=== PATIENT | female | born 1935 | race Caucasian/White ===

== ENCOUNTER 2018-12-16 10:43 | Inpatient (IN) | payer MEDICARE, MEDICAID ==
[~2018-12-16] VITALS: Ht 167.6 cm; Wt 78.5 kg
[2018-12-16 12:01] LABS: HEMOGLOBIN. 11.9 g/dL (12.0-16.0); MEAN CORPUSCULAR HEMOGLOBIN 30.2 pg (28.0-32.0); MEAN CORPUSCULAR VOLUME 89.3 fL (81.0-99.0); MEAN PLATELET VOLUME 7.6 fl (7.4-10.4); PLATELET 237 x1000/uL (130-400); RED BLOOD CELL COUNT 3.92 mill/uL (4.2-5.4); RED CELL DISTRIBUTION WIDTH 15.5 % (11.6-14.6)
[2018-12-16 12:09] LABS: INR 1.1; PROTHROMBIN TIME 10.9 sec (9.6-11.0)
[2018-12-16 12:13] LABS: CHLORIDE 99 mEq/L (98-107)
[2018-12-16 12:49] LABS: PLATELET ESTIMATE NORMAL
[2018-12-16] MEDS ORDERED: ACETAMINOPHEN 650MG/20.3ML UDC GT PRN (15:30)
[2018-12-16] MEDS ORDERED: ONDANSETRON HCL 4MG/2ML INJ IV PRN (15:30)
[2018-12-16] MEDS ORDERED: LORAZEPAM 0.5MG TABLET PO PRN (15:30)
[2018-12-16 18:20] VITALS: BP 142/49
[2018-12-16 19:30] VITALS: BP 142/49
[2018-12-16] MEDS: ENOXAPARIN 30MG/0.3ML SYR SUBCUT SCH (19:44)
[2018-12-16] MEDS: IPRATROPIUM/ALBUTEROL 0.5-3(2.5)MG/3ML NEB HHN SCH (20:06)
[2018-12-16] MEDS ORDERED: POTASSIUM CHLORIDE 20MEQ/PACKET PO NR (20:30)
[2018-12-16 21:00] VITALS: BP 121/60
[2018-12-16] MEDS: GUAIFENESIN/CODEINE 200-20MG/10ML UDC PO PRN (22:14)
[2018-12-16] MEDS: DILTIAZEM HCL 30MG TABLET PO SCH (22:15)
[2018-12-16] MEDS: SODIUM CHL 0.45% + KCL 20MEQ/L 1,000 ML IV SCH (22:17)
[2018-12-17] VITALS: BP 98/64
[2018-12-17] MEDS ORDERED: SODIUM CHL 0.45% + KCL 20MEQ/L 1,000 ML IV SCH
[2018-12-17] MEDS ORDERED: APIX2.5T PO (00:07)
[2018-12-17] MEDS ORDERED: LOSA100T32 PO (00:07)
[2018-12-17] MEDS ORDERED: CHOL100022 PO (00:07)
[2018-12-17] MEDS ORDERED: FENO160T9 PO (00:07)
[2018-12-17] MEDS ORDERED: CYAN-33 PO (00:07)
[2018-12-17] MEDS ORDERED: LEVO50TA8 PO (00:07)
[2018-12-17] MEDS ORDERED: ASCO500C15 PO (00:07)
[2018-12-17] MEDS ORDERED: AMIO100T4 PO (00:07)
[2018-12-17] MEDS ORDERED: EZET10TA13 PO (00:07)
[2018-12-17] MEDS ORDERED: METO5TAB69 PO (00:07)
[2018-12-17] MEDS: IPRATROPIUM/ALBUTEROL 0.5-3(2.5)MG/3ML NEB HHN SCH ×6 (00:43→21:19)
[2018-12-17 04:00] VITALS: BP 122/50
[2018-12-17] MEDS: DILTIAZEM HCL 30MG TABLET PO SCH (06:33)
[2018-12-17 06:34] LABS: HEMATOCRIT. 32.8 % (36.0-48.0); HEMOGLOBIN. 11.1 g/dL (12.0-16.0); MEAN CORPUSCULAR HEMOGLOBIN 30.1 pg (28.0-32.0); MEAN CORPUSCULAR VOLUME 89.2 fL (81.0-99.0); MEAN PLATELET VOLUME 8.1 fl (7.4-10.4); PLATELET 233 x1000/uL (130-400); RED BLOOD CELL COUNT 3.68 mill/uL (4.2-5.4); RED CELL DISTRIBUTION WIDTH 15.8 % (11.6-14.6)
[2018-12-17 07:01] LABS: PHOSPHORUS 4.6 mg/dL (2.5-4.9)
[2018-12-17 08:00] VITALS: BP 154/66
[2018-12-17] MEDS: LEVOTHYROXINE SODIUM 50MCG TABLET PO SCH (08:21)
[2018-12-17] MEDS: AMIODARONE HCL 200 MG TABLET PO SCH (08:22)
[2018-12-17] MEDS: ASPIRIN 81MG TABLET PO SCH (08:22)
[2018-12-17] MEDS: EZETIMIBE 10MG TABLET PO SCH (08:22)
[2018-12-17] MEDS: FENOFIBRATE NANOCRYSTALLIZED 145MG TABLET PO SCH (08:24)
[2018-12-17] MEDS: SODIUM CHL 0.45% + KCL 20MEQ/L 1,000 ML IV SCH ×2 (09:31→22:40)
[2018-12-17] MEDS: GUAIFENESIN/CODEINE 200-20MG/10ML UDC PO PRN (10:52)
[2018-12-17] MEDS: POLYETHYLENE GLYCOL 3350 (17GM) 1 DOSE PACK PO SCH (10:52)
[2018-12-17 12:00] VITALS: BP 117/66
[2018-12-17 12:36] LABS: TOTAL IRON BINDING CAPACITY 385 ug/dL (250-450)
[2018-12-17 16:00] VITALS: BP 120/74
[2018-12-17] MEDS: ENOXAPARIN 30MG/0.3ML SYR SUBCUT SCH (16:28)
[2018-12-17 20:00] VITALS: BP 101/54
[2018-12-18] VITALS: BP 104/74
[2018-12-18] MEDS ORDERED: SODIUM CHL 0.45% + KCL 20MEQ/L 1,000 ML IV SCH
[2018-12-18] MEDS: IPRATROPIUM/ALBUTEROL 0.5-3(2.5)MG/3ML NEB HHN SCH ×7 (01:32→21:23)
[2018-12-18 04:00] VITALS: BP 106/52
[2018-12-18 07:33] LABS: HEMATOCRIT. 30.9 % (36.0-48.0); HEMOGLOBIN. 10.2 g/dL (12.0-16.0); MEAN CORPUSCULAR HEMOGLOBIN 29.6 pg (28.0-32.0); MEAN CORPUSCULAR VOLUME 89.4 fL (81.0-99.0); MEAN PLATELET VOLUME 7.6 fl (7.4-10.4); PLATELET 213 x1000/uL (130-400); RED BLOOD CELL COUNT 3.46 mill/uL (4.2-5.4); RED CELL DISTRIBUTION WIDTH 16.1 % (11.6-14.6)
[2018-12-18 07:52] VITALS: BP 105/63
[2018-12-18] MEDS ORDERED: AMLODIPINE 2.5MG TABLET PO SCH (09:00)
[2018-12-18] MEDS: FENOFIBRATE NANOCRYSTALLIZED 145MG TABLET PO SCH (09:43)
[2018-12-18] MEDS: EZETIMIBE 10MG TABLET PO SCH (09:43)
[2018-12-18] MEDS: POLYETHYLENE GLYCOL 3350 (17GM) 1 DOSE PACK PO SCH (09:43)
[2018-12-18] MEDS: AMIODARONE HCL 200 MG TABLET PO SCH (09:43)
[2018-12-18] MEDS: LEVOTHYROXINE SODIUM 50MCG TABLET PO SCH (09:43)
[2018-12-18] MEDS: ASPIRIN 81MG TABLET PO SCH (09:43)
[2018-12-18] MEDS ORDERED: MORPHINE SULFATE 2 MG/ML CPJ (NOT FOR IM USE) IV PRN (09:45)
[2018-12-18 10:43] LABS: PLATELET ESTIMATE NORMAL
[2018-12-18 12:33] VITALS: BP 131/105
[2018-12-18] MEDS ORDERED: IRON SUCROSE COMPLEX 100 MG/5 ML ML IV SCH (13:30)
[2018-12-18] MEDS: SODIUM CHLORIDE 0.45% 1,000 ML IV SCH (13:52)
[2018-12-18] MEDS ORDERED: NITROGLYCERIN OINT 1GM/INCH UDPKT TD SCH (14:00)
[2018-12-18] MEDS: GUAIFENESIN/CODEINE 200-20MG/10ML UDC PO PRN (15:56)
[2018-12-18 16:18] VITALS: BP 128/68
[2018-12-18] MEDS: ENOXAPARIN 30MG/0.3ML SYR SUBCUT SCH (17:48)
[2018-12-18 20:00] VITALS: BP 105/37
[2018-12-18] MEDS: CARVEDILOL 3.125 MG TABLET PO SCH (21:00)
[2018-12-19] VITALS: BP 132/86
[2018-12-19] MEDS: IPRATROPIUM/ALBUTEROL 0.5-3(2.5)MG/3ML NEB HHN SCH ×6 (00:47→20:51)
[2018-12-19] MEDS: SODIUM CHLORIDE 0.45% 1,000 ML IV SCH ×2 (02:47→15:32)
[2018-12-19 04:00] VITALS: BP_SYST 137; BP_DIAS 62; BP_DIAS 92
[2018-12-19 08:17] VITALS: BP 103/78
[2018-12-19] MEDS: FENOFIBRATE NANOCRYSTALLIZED 145MG TABLET PO SCH (09:13)
[2018-12-19] MEDS: LEVOTHYROXINE SODIUM 50MCG TABLET PO SCH (09:13)
[2018-12-19] MEDS: EZETIMIBE 10MG TABLET PO SCH (09:13)
[2018-12-19] MEDS: ASPIRIN 81MG TABLET PO SCH (09:13)
[2018-12-19] MEDS: AMIODARONE HCL 200 MG TABLET PO SCH (09:13)
[2018-12-19] MEDS: POLYETHYLENE GLYCOL 3350 (17GM) 1 DOSE PACK PO SCH (09:13)
[2018-12-19] MEDS: CARVEDILOL 3.125 MG TABLET PO SCH ×2 (09:14→21:00)
[2018-12-19] MEDS ORDERED: POLYETHYLENE GLYCOL 3350 (17GM) 1 DOSE PACK PO SCH (09:15)
[2018-12-19] MEDS: GUAIFENESIN/CODEINE 200-20MG/10ML UDC PO PRN (09:27)
[2018-12-19 10:01] LABS: PLATELET ESTIMATE NORMAL
[2018-12-19 12:09] VITALS: BP 139/34
[2018-12-19 16:26] VITALS: BP 105/48
[2018-12-19] MEDS: ENOXAPARIN 30MG/0.3ML SYR SUBCUT SCH (18:57)
[2018-12-19 20:00] VITALS: BP_SYST 105; BP_SYST 107; BP_DIAS 52; BP_DIAS 56
[2018-12-20] VITALS: BP 107/56
[2018-12-20] MEDS: IPRATROPIUM/ALBUTEROL 0.5-3(2.5)MG/3ML NEB HHN SCH ×6 (00:47→20:54)
[2018-12-20 04:00] VITALS: BP 114/51
[2018-12-20] MEDS: SODIUM CHLORIDE 0.45% 1,000 ML IV SCH ×2 (05:01→21:23)
[2018-12-20 07:37] LABS: HEMATOCRIT. 30.5 % (36.0-48.0); HEMOGLOBIN. 10.1 g/dL (12.0-16.0); MEAN CORPUSCULAR HEMOGLOBIN 29.8 pg (28.0-32.0); MEAN CORPUSCULAR VOLUME 90.5 fL (81.0-99.0); PLATELET 199 x1000/uL (130-400); RED BLOOD CELL COUNT 3.37 mill/uL (4.2-5.4); RED CELL DISTRIBUTION WIDTH 16.3 % (11.6-14.6)
[2018-12-20 08:00] VITALS: BP 126/70
[2018-12-20] MEDS: ASPIRIN 81MG TABLET PO SCH (09:37)
[2018-12-20] MEDS: EZETIMIBE 10MG TABLET PO SCH (09:37)
[2018-12-20] MEDS: FENOFIBRATE NANOCRYSTALLIZED 145MG TABLET PO SCH (09:37)
[2018-12-20] MEDS: AMIODARONE HCL 200 MG TABLET PO SCH (09:37)
[2018-12-20] MEDS: LEVOTHYROXINE SODIUM 50MCG TABLET PO SCH (09:38)
[2018-12-20] MEDS: CARVEDILOL 3.125 MG TABLET PO SCH ×2 (09:38→21:23)
[2018-12-20] MEDS: POLYETHYLENE GLYCOL 3350 (17GM) 1 DOSE PACK PO SCH (09:39)
[2018-12-20] MEDS ORDERED: POLYETHYLENE GLYCOL 3350 (17GM) 1 DOSE PACK PO SCH (10:30)
[2018-12-20 12:00] VITALS: BP 112/42
[2018-12-20] MEDS ORDERED: INFLUENZA VIRUS VACCINE(AFLURIA) 0.5ML SYR IM ONE (13:30)
[2018-12-20] MEDS ORDERED: PNEUMOCOCCAL 23-VAL P-SAC VAC 0.5 ML IM ONE (13:30)
[2018-12-20 16:00] VITALS: BP 119/47
[2018-12-20 17:12] LABS: PLATELET ESTIMATE NORMAL
[2018-12-20] MEDS ORDERED: SODIUM CHLORIDE 0.45% 1,000 ML IV SCH (19:30)
[2018-12-20 20:00] VITALS: BP 132/72
[2018-12-21] VITALS: BP_SYST 110; BP_DIAS 44; BP_DIAS 64
[2018-12-21] MEDS: IPRATROPIUM/ALBUTEROL 0.5-3(2.5)MG/3ML NEB HHN SCH ×6 (00:23→20:30)
[2018-12-21 04:00] VITALS: BP 142/49
[2018-12-21 07:33] LABS: BASOPHILS % 0.5 % (0.0-2.0); HEMATOCRIT. 33.5 % (36.0-48.0); HEMOGLOBIN. 11.1 g/dL (12.0-16.0); LYMPHOCYTES % 8.9 % (20.0-50.0); MEAN CORPUSCULAR HEMOGLOBIN 30.1 pg (28.0-32.0); MEAN CORPUSCULAR VOLUME 90.9 fL (81.0-99.0); MEAN PLATELET VOLUME 7.9 fl (7.4-10.4); MONOCYTES % 9.9 % (2.0-8.0); NEUTROPHILS % 77.7 % (40.0-76.0); PLATELET 233 x1000/uL (130-400); RED BLOOD CELL COUNT 3.68 mill/uL (4.2-5.4); RED CELL DISTRIBUTION WIDTH 15.7 % (11.6-14.6)
[2018-12-21 08:00] VITALS: BP 138/42
[2018-12-21] MEDS: SODIUM CHLORIDE 0.45% 1,000 ML IV SCH (08:50)
[2018-12-21] MEDS: GUAIFENESIN/CODEINE 200-20MG/10ML UDC PO PRN ×2 (08:58→22:26)
[2018-12-21] MEDS: ASPIRIN 81MG TABLET PO SCH (08:58)
[2018-12-21] MEDS: EZETIMIBE 10MG TABLET PO SCH (08:58)
[2018-12-21] MEDS: LEVOTHYROXINE SODIUM 75MCG TABLET PO SCH (08:58)
[2018-12-21] MEDS: FENOFIBRATE NANOCRYSTALLIZED 145MG TABLET PO SCH (08:58)
[2018-12-21] MEDS: POLYETHYLENE GLYCOL 3350 (17GM) 1 DOSE PACK PO SCH (08:59)
[2018-12-21] MEDS: AMIODARONE HCL 200 MG TABLET PO SCH (08:59)
[2018-12-21] MEDS: CARVEDILOL 3.125 MG TABLET PO SCH ×2 (09:00→21:00)
[2018-12-21 12:00] VITALS: BP 102/65
[2018-12-21 16:00] VITALS: BP 133/67
[2018-12-21 20:00] VITALS: BP 106/46
[2018-12-22] MEDS: IPRATROPIUM/ALBUTEROL 0.5-3(2.5)MG/3ML NEB HHN SCH ×3 (00:27→09:46)
[2018-12-22 00:33] VITALS: BP 117/32
[2018-12-22 04:46] VITALS: BP 133/89
[2018-12-22 07:05] LABS: BASOPHILS % 0.9 % (0.0-2.0); EOSINOPHILS % 6.9 % (0.0-5.0); HEMATOCRIT. 30.7 % (36.0-48.0); HEMOGLOBIN. 10.1 g/dL (12.0-16.0); LYMPHOCYTES % 19.1 % (20.0-50.0); MEAN CORPUSCULAR HEMOGLOBIN 30.1 pg (28.0-32.0); MEAN CORPUSCULAR VOLUME 91.3 fL (81.0-99.0); MEAN PLATELET VOLUME 8.1 fl (7.4-10.4); MONOCYTES % 11.7 % (2.0-8.0); NEUTROPHILS % 61.4 % (40.0-76.0); PLATELET 210 x1000/uL (130-400); RED BLOOD CELL COUNT 3.36 mill/uL (4.2-5.4); RED CELL DISTRIBUTION WIDTH 15.6 % (11.6-14.6)
[2018-12-22 08:00] VITALS: BP 90/59
[2018-12-22] MEDS: FENOFIBRATE NANOCRYSTALLIZED 145MG TABLET PO SCH (08:37)
[2018-12-22] MEDS: POLYETHYLENE GLYCOL 3350 (17GM) 1 DOSE PACK PO SCH (08:37)
[2018-12-22] MEDS: EZETIMIBE 10MG TABLET PO SCH (08:37)
[2018-12-22] MEDS: AMIODARONE HCL 200 MG TABLET PO SCH (08:37)
[2018-12-22] MEDS: CARVEDILOL 3.125 MG TABLET PO SCH (08:37)
[2018-12-22] MEDS: LEVOTHYROXINE SODIUM 75MCG TABLET PO SCH (08:37)
[2018-12-22] MEDS: ASPIRIN 81MG TABLET PO SCH (08:37)
[2018-12-22 11:40] VITALS: BP 95/59
== END 2018-12-22 12:19 | DRG 683 ==
LOC: ER 10:43 → 7WST 12:45 → CANRESERV 13:39 → ENRESERV 13:39
PROVIDERS: ADMIT Internal Medicine; ATTEND Internal Medicine
PROC: 4B02XSZ Measurement of Cardiac Pacemaker, External Approach (ICD-10-PCS; principal; 2018-12-19)
DX: N17.9 Acute kidney failure, unspecified (principal); I13.0 Hypertensive heart and chronic kidney disease with heart failure and stage 1 through stage 4 chronic kidney disease, or unspecified chronic kidney disease; I50.32 Chronic diastolic (congestive) heart failure; E03.9 Hypothyroidism, unspecified; E78.5 Hyperlipidemia, unspecified; E87.5 Hyperkalemia; E87.6 Hypokalemia; F02.80 Dementia in other diseases classified elsewhere, unspecified severity, without behavioral disturbance, psychotic disturbance, mood disturbance, and anxiety; G30.9 Alzheimer's disease, unspecified; I25.10 Atherosclerotic heart disease of native coronary artery without angina pectoris; Z66 Do not resuscitate; Z96.653 Presence of artificial knee joint, bilateral; K59.00 Constipation, unspecified; I49.5 Sick sinus syndrome; N18.4 Chronic kidney disease, stage 4 (severe); E78.00 Pure hypercholesterolemia, unspecified; E78.2 Mixed hyperlipidemia; N18.9 Chronic kidney disease, unspecified; T50.1X5A Adverse effect of loop [high-ceiling] diuretics, initial encounter; T50.2X5A Adverse effect of carbonic-anhydrase inhibitors, benzothiadiazides and other diuretics, initial encounter; Y92.89 Other specified places as the place of occurrence of the external cause; Z79.82 Long term (current) use of aspirin; Z79.01 Long term (current) use of anticoagulants; Z95.0 Presence of cardiac pacemaker; Z79.890 Hormone replacement therapy; Z79.899 Other long term (current) drug therapy
CPT/HCPCS: 36415; 71045; 76770; 80048; 82270; 83540; 83550; 83735; 84100; 84443; 84484; 90686; 90732; 93005; 93306; 93970; 94640; 96372; 99285; A6261; C1893; J1650; J3480; J7620